=== PATIENT | female | born 1945 | race Hispanic/Latino ===

== ENCOUNTER 2017-10-06 13:07 | Emergency (ER) | payer MEDICARE ==
[2017-10-06 13:43] VITALS: BP 144/77; PULSE 74; RESP 16; TEMP 97.6; O2SAT 96
--- NOTE | 2017-10-06 14:32 | C.PDOC ---
History Of Present Illness 71 year old female presents to the ED with her AA sponsor for evaluation of substance abuse. Patient states she normally takes oxycontin for her sciatica- related back pain but found that her prescription medication was missing today. Patient states she was afraid of going into withdrawal, so she states she took two pills of Soma, Xanax and Zanaflex, respectively. Patient notes she did not take the pills as a suicide attempt, but because she was afraid of going into withdrawal and wanted to get high. Patient states she is currently jittery and has no other complaints at this time. Time Seen by Provider: 10/06/17 14:17 Chief Complaint (Nursing): Substance Abuse History Per: Patient History/Exam Limitations: no limitations Onset/Duration Of Symptoms: Hrs Current Symptoms Are (Timing): Still Present Suicide/Self Injury Attempted (Context): None Modifying Factor(s): Narcotics Associated Symptoms: denies: Suicidal Thoughts, Suicidal Plan Involuntary Hold By: None Recent travel outside of the [place]: No Additional History Per: Patient Past Medical History Reviewed: Historical Data, Nursing Documentation, Vital Signs Vital Signs: Last Vital Signs Temp 97.6 F 10/06/17 13:40 Pulse 74 10/06/17 13:40 Resp 16 10/06/17 13:40 BP 144/77 10/06/17 13:40 Pulse Ox 96 10/06/17 15:34 - Medical History PMH: Hyperlipidemia, Hypothyroidism Denies: Diabetes, Hepatitis, HIV, HTN, Seizures, Sexually Transmitted Disease Surgical History: No Surg Hx - [facility] Procedures DETOXIFICATION SERVICES FOR SUBSTANCE ABUSE TREATMENT (06/22/15) INDIV PSYCHOTHERAPY FOR SUBSTANCE ABUSE TREATMENT, SUPPORT (06/22/15) INDIV PSYCHOTHERAPY FOR SUBSTANCE ABUSE, PSYCHOEDUCATION (06/22/15) Family History: States: Unknown Family Hx - Social History Hx Alcohol Use: Yes Hx Substance Use: Yes - Immunization History Hx Tetanus Toxoid Vaccination: No Hx Influenza Vaccination: Yes Hx Pneumococcal Vaccination: No Review Of Systems Psych: Negative for: Suicidal ideation Physical Exam - Physical Exam Appears: Non-toxic, No Acute Distress Skin: Normal Color, Warm, Dry Head: Atraumatic, Normacephalic Eye(s): bilateral: Normal Inspection Oral Mucosa: Moist Neck: Supple Chest: Symmetrical, No Deformity, No Tenderness Cardiovascular: Rhythm Regular, No Murmur Respiratory: Normal Breath Sounds, No Rales, No Rhonchi, No Wheezing Extremity: Normal ROM, Capillary Refill (less than 2 seconds ) Neurological/Psych: Oriented x3, Normal Speech, Normal Cognition ED Course And Treatment O2 Sat by Pulse Oximetry: 96 (on RA) Pulse Ox Interpretation: Normal Progress Note: Catapres PO administered. Reevaluation Time: 15:51 Reassessment Condition: Improved (PT REFUSING DETOX. S/P EVAL CRISIS, REFERRAL INFO GIVEN.) Disposition Counseled Patient/Family Regarding: Diagnosis, Need For Followup - Disposition Referrals: DETOX,DETOX [Other] Disposition: HOME/ ROUTINE Disposition Time: 15:52 Condition: IMPROVED Instructions: Drug Withdrawal (DC) Forms: [place] (Portuguese) - Clinical Impression Clinical Impression: Polysubstance (including opioids) dependence, daily use - Scribe Statement The provider has reviewed the documentation as recorded by the Scribe (Jodie Mojica) Provider Attestation: All medical record entries made by the Scribe were at my direction and personally dictated by me. I have reviewed the chart and agree that the record accurately reflects my personal performance of the history, physical exam, medical decision making, and the department course for this patient. I have also personally directed, reviewed, and agree with the discharge instructions and disposition.
== END 2017-10-06 16:01 | disposition home or self-care (01) ==
LOC: C.ER 13:07
DX: F11.20 Opioid dependence, uncomplicated (principal)

== ENCOUNTER 2017-10-09 11:51 | Inpatient (IN) | payer MEDICARE ==
[2017-10-09 12:03] VITALS: BMI 20.5
[2017-10-09] MEDS ORDERED: Sodium Chloride 0.9% 1,000 ML IV ONE (12:27)
[2017-10-09] MEDS ORDERED: Sodium Chloride 0.9% 1,000 ML ONE (12:42)
[2017-10-09 13:10] LABS: BASO % 0.6 % (0.0-2.0); EOS % 0.6 % (0.0-4.0); HEMOGLOBIN 10.9 g/dL (11.0-16.0); LYMPH # 1.2 K/uL (1.0-4.3); MEAN CELL VOLUME 76.5 fL (81.0-99.0); MEAN CORPUSCULAR HEMOGLOBIN 24.5 pg (27.0-31.0); MEAN PLATELET VOLUME 8.2 fL (7.2-11.7); MONO # 0.7 K/uL (0.0-0.8); NEUT # 5.5 K/uL (1.8-7.0); NEUT % 73.8 % (50.0-75.0); NRBC % 0.1 % (0.0-2.0); RBC 4.46 Mil/uL (3.80-5.20); RED CELL DISTRIBUTION WIDTH 19.1 % (11.5-14.5); WHITE BLOOD COUNT 7.5 K/uL (4.8-10.8)
[2017-10-09 13:16] LABS: SQUAMOUS EPITHIAL 2 /hpf (0-5); URINE BACTERIA OCC (<OCC); URINE BILIRUBIN NEGATIVE (NEGATIVE); URINE BLOOD NEGATIVE (NEGATIVE); URINE CLARITY Clear (Clear); URINE COLOR Yellow (YELLOW); URINE GLUCOSE (UA) NORMAL (Normal); URINE LEUKOCYTE ESTERASE TRACE Leu/uL (Negative); URINE PROTEIN NEGATIVE (NEGATIVE); URINE UROBILINOGEN NORMAL mg/dL (0.2-1.0)
[2017-10-09 13:22] LABS: ALB/GLOB RATIO 1.2 (1.0-2.1); ALBUMIN 3.8 g/dL (3.5-5.0); ALT/SGPT 16 U/L (9-52); AST/SGOT 26 U/L (14-36); BLOOD UREA NITROGEN 23 mg/dL (7-17); CALCIUM 8.5 mg/dl (8.6-10.4); GFR AFRICAN-AMERICAN > 60; GFR NON-AFRICAN AMERICAN > 60
--- NOTE | 2017-10-09 13:30 | C.PDOC ---
History Of Present Illness 71-year-old female, presents to the emergency department requesting detox from alcohol, Percocet and Xanax. Patient states her last drink was 05:00 this morning. She admits nausea. Denies any SI/HI. Time Seen by Provider: 10/09/17 12:17 Chief Complaint (Nursing): Substance Abuse History Per: Patient History/Exam Limitations: no limitations Past Medical History Reviewed: Historical Data, Nursing Documentation, Vital Signs Vital Signs: Last Vital Signs Temp 97.5 F L 10/09/17 12:03 Pulse 72 10/09/17 12:03 Resp 16 10/09/17 12:03 BP 91/58 L 10/09/17 12:03 Pulse Ox 99 10/09/17 12:03 - Medical History PMH: Hyperlipidemia, Hypothyroidism - [facility] Procedures DETOXIFICATION SERVICES FOR SUBSTANCE ABUSE TREATMENT (06/22/15) INDIV PSYCHOTHERAPY FOR SUBSTANCE ABUSE TREATMENT, SUPPORT (06/22/15) INDIV PSYCHOTHERAPY FOR SUBSTANCE ABUSE, PSYCHOEDUCATION (06/22/15) Family History: States: No Known Family Hx - Social History Hx Alcohol Use: Yes Hx Substance Use: Yes - Immunization History Hx Tetanus Toxoid Vaccination: No Hx Influenza Vaccination: Yes Hx Pneumococcal Vaccination: No Review Of Systems Constitutional: Negative for: Fever Cardiovascular: Negative for: Chest Pain Respiratory: Negative for: Shortness of Breath Gastrointestinal: Negative for: Vomiting Neurological: Negative for: Weakness, Numbness Psych: Negative for: Suicidal ideation, Withdrawal Physical Exam - Physical Exam Appears: Non-toxic, No Acute Distress, Chronically Ill, Other (thin) Skin: Warm, Dry, No Rash Head: Normacephalic Eye(s): bilateral: PERRL Nose: Normal Oral Mucosa: Moist Lips: Normal Appearing Neck: Normal ROM Cardiovascular: Rhythm Regular, No Murmur Respiratory: Normal Breath Sounds, No Accessory Muscle Use Gastrointestinal/Abdominal: Soft, No Tenderness Extremity: Normal ROM, No Deformity, No Swelling Neurological/Psych: Oriented x3, Normal Speech, Other (no tremor) ED Course And Treatment - Laboratory Results Result Diagrams: 10/09/17 13:04 10/09/17 13:04 O2 Sat by Pulse Oximetry: 99 (RA) Pulse Ox Interpretation: Normal Progress Note: Bloodwork and UA ordered and reviewed, pt treated with Zofran and IVFs. Disposition - Disposition - Scribe Statement The provider has reviewed the documentation as recorded by the Scribe (helena Rivera) All medical record entries made by the Scribe were at my direction and personally dictated by me. I have reviewed the chart and agree that the record accurately reflects my personal performance of the history, physical exam, medical decision making, and the department course for this patient. I have also personally directed, reviewed, and agree with the discharge instructions and disposition.
[2017-10-09 13:31] LABS: BARBITURATES, UR NEGATIVE (NEGATIVE); OPIATES, UR NEGATIVE (NEGATIVE); PHENCYCLIDINE, UR NEGATIVE (NEGATIVE)
[2017-10-09 13:36] LABS: BENZODIAZEPINES, UR POSITIVE (NEGATIVE)
--- NOTE | 2017-10-09 13:36 | C.PDOC ---
History Of Present Illness 71-year-old female, with PMh HTN, hypothyroid, presents to the emergency department requesting detox from alcohol, Percocet and Xanax. Patient states her last drink was 05:00 this morning. She admits nausea. Denies any SI/HI. Pt denies withdrawal seizures. STates she is complaint with her chronic medication. Time Seen by Provider: 10/09/17 12:05 Chief Complaint (Nursing): Substance Abuse History Per: Patient History/Exam Limitations: no limitations Past Medical History Reviewed: Historical Data, Nursing Documentation, Vital Signs Vital Signs: Last Vital Signs Temp 98.4 F 10/09/17 17:21 Pulse 47 L 10/09/17 17:21 Resp 20 10/09/17 17:21 BP 144/63 10/09/17 17:21 Pulse Ox 99 10/09/17 17:52 - Medical History PMH: Hyperlipidemia, Hypothyroidism - [facility] Procedures DETOXIFICATION SERVICES FOR SUBSTANCE ABUSE TREATMENT (06/22/15) INDIV PSYCHOTHERAPY FOR SUBSTANCE ABUSE TREATMENT, SUPPORT (06/22/15) INDIV PSYCHOTHERAPY FOR SUBSTANCE ABUSE, PSYCHOEDUCATION (06/22/15) Family History: States: No Known Family Hx - Social History Hx Alcohol Use: Yes Hx Substance Use: Yes - Immunization History Hx Tetanus Toxoid Vaccination: No Hx Influenza Vaccination: Yes Hx Pneumococcal Vaccination: No Review Of Systems Constitutional: Negative for: Fever Cardiovascular: Negative for: Chest Pain Respiratory: Negative for: Shortness of Breath Gastrointestinal: Negative for: Vomiting Psych: Negative for: Suicidal ideation, Withdrawal Physical Exam - Physical Exam Appears: Non-toxic, No Acute Distress, Other (thin, no tremor) Skin: Normal Color, Warm, Dry, No Rash Head: Normacephalic Eye(s): bilateral: Normal Inspection, EOMI Nose: Normal Oral Mucosa: Moist Lips: Normal Appearing Neck: Normal ROM, Supple Chest: Symmetrical Cardiovascular: Rhythm Regular, Other (bradycardia) Respiratory: Normal Breath Sounds, No Accessory Muscle Use Extremity: Normal ROM, No Deformity, No Swelling Neurological/Psych: Oriented x3, Normal Speech ED Course And Treatment - Laboratory Results Result Diagrams: 10/09/17 13:04 10/09/17 13:04 ECG: Interpreted By Me, Viewed By Me ECG Rhythm: Sinus Bradycardia Rate From EC O2 Sat by Pulse Oximetry: 99 (RA) Pulse Ox Interpretation: Normal Progress Note: Bloodwork and UA ordered and reviewed, pt treated with Zofran and IVFs. Pt was noted to have bradycardia. Pt notes that her HR is always in the 40s, that is normal for her. STates her outsole molder is aware. States "I work out a lot." Deneis sob, chest pain, dizziness, headache or associated symtpoms. Case discussed with Dr Mallory who evlauated pt at bedside and agreed upon plan and admission. slag worker evalauted pt at bedside and discussed case with Dr Heredia who agreed upon admission. Disposition - Disposition Disposition: HOSPITALIZED Disposition Time: 17:00 Condition: STABLE - Clinical Impression Clinical Impression: Drug dependence, Polysubstance (including opioids) dependence, daily use - Scribe Statement The provider has reviewed the documentation as recorded by the Scribe (Aaron Rivera) All medical record entries made by the Scribe were at my direction and personally dictated by me. I have reviewed the chart and agree that the record accurately reflects my personal performance of the history, physical exam, medical decision making, and the department course for this patient. I have also personally directed, reviewed, and agree with the discharge instructions and disposition.
[2017-10-09] MEDS: Multiple Vitamins Tab PO SCH (18:13)
--- NOTE | 2017-10-09 19:25 | PCM.BM ---
<Elisabeth Solorzano - Last Filed: 10/09/17 19:22> Treatment Plan Problems - Problems identified on initial assessmt potential for alcohol withdrawal Date Initiated: 10/09/17 Time Initiated: 19:23 Assessment reference: NA Status: Active potential for opiate withdrawal Date Initiated: 10/09/17 Time Initiated: 19:23 Assessment reference: NA Status: Active potential for benzo withdrawal Date Initiated: 10/09/17 Time Initiated: 19:24 Assessment reference: NA Status: Active Treatment assets and liabiliti Patient Assests: adapts well, cooperative, insightful, ADL independent, good support system, negotiates basic needs, cognitively intact Patient Liabilities: dietary restrictions, substance abuse, medical problems - Milieu Protocol Maintain good personal hygiene: daily Encourage regular showers, daily Remind patient to perform daily oral care, daily Assist patient to perform ADL's Maintain personal safety: every shift Educate patient to report safety concerns to staff, every shift Monitor environment for contraband/sharps Medication safety: Monitor for expected outcome, potential side effects: every shift, Assess barriers to learning: every shift, Assess readiness for medication education: every shift <Josselyn Wills - Last Filed: 10/10/17 12:13> Family Contact Family involvement: Family/SO is involved Family contact: Patient agrees to contact, Telephone contact initiated by staff - Goals for Treatment Patient goals for treatment: Complete detox and resume AA meetings with her sponsor. Discharge/Continuing Care - Education Needs Education Needs: Patient Medication, Patient Diagnosis/Disease Process, Patient Coping Skills, Patient Anger Management skills, Patient Placement options, Patient Community resources, Significant Other Medication, Significant Other Diagnosis/Disease Process, Significant Other Coping Skills, Significant Other Anger Management skills, Significant Other Placement options, Significant Other Community resources - Discharge Discharge Criteria: Ability to care for self, No longer exhibiting s/s of withdrawal, Reduction of target symptoms Discharge to:: Home, With Family - Treatment Team Participation Patient/Family/SO Statement: 10/10/17 12:14 "I know what works for me. I have to get back to basics." Discussed with Family/SO: No Was Patient/Family/SO present at Treatment Team Meeting: Yes <Elkin Heredia - Last Filed: 10/10/17 22:58> - Diagnosis (1) Opioid use disorder, severe, dependence Status: Acute Interventions: 10/10/17 22:58 * Assess 7x/week regarding severity of withdrawal * Educate regarding risks, benefits, side effects and alternatives of medications * Use Motivational Interviewing for abstinence * Use CBT for relapse prevention * Medication management for withdrawal symptoms * Encourage medication assisted treatment *
[2017-10-10] MEDS: Multiple Vitamins Tab PO SCH (09:42)
[2017-10-10] MEDS ORDERED: Buprenorphine Hydrochloride 2 mg SL ONE ×2 (09:59→11:15)
[2017-10-10] MEDS: Levothyroxine 25 MCG TAB PO SCH (10:26)
--- NOTE | 2017-10-10 15:10 | CARD ---
APPROVED REPORT EKG Measurement Heart [id number] <Conclusion> Marked sinus bradycardia Possible Left atrial enlargement Left ventricular hypertrophy Nonspecific ST and T wave abnormality Abnormal ECG
--- NOTE | 2017-10-10 15:55 | PCM.PSYCH ---
Initial Psychiatric Evaluation - Initial Psychiatric Evaluation Type of Admission: Voluntary Legal Status: Capacity Chief Complaint (in patient's own words): "I need to stop the Xanax' History of Present Illness and Precipitating Events: HPI: 71 year old female with PMHx of alcohol and polysubstance abuse presents for benzodiazepine and opiate detox. Patient lives in [place] with her who has slight dementia, she is a retired teacher. She has been through detox 5-6 times in the past and once through rehab. Her longest period of sobriety was from 2007 to 2015. She relapsed about 1 year ago when she took Percocet for sciatica. She states she has been overusing her prescribed Xanax whenever her Percocet ran out and has been adding alcohol as well. She takes 6x 350 mg Percocet daily, last used 5 days ago when they ran out. She uses 0.5 mg Xanax 2-4x daily (but she is unsure of actual dosing), last used 5:30pm yesterday. She uses a half liter of liquor daily, last used 5:30pm yesterday. She currently complains of anxiety, tremors, and discomfort from withdrawal symptoms, n/v/d last night. Denies depression, hallucinations, suicidal or homicidal ideation. PMHx: sciatica (left side), osteoporosis, polysubstance abuse opiates, Xanax, alcohol Psych hx: multiple detox admisssions for polysubstance abuse Fam hx: denies family history of psychiatric issues or substance abuse Social hx: lives with who has slight dementia in [facility]; retired, former nursery teacher; exercises twice a day on ellipitical and bike, lifts weights; denies tobacco, marijuana, heroin, cocaine use; uses 0.5 mg Xanax 2-4x daily (but she is unsure of actual dosing); drinks 0.5 liters liquor daily Current Medications: Active Medications Generic Name Dose Route Start Last Admin Trade Name Freq PRN Reason Stop Dose Admin Chlordiazepoxide 25 mg 10/09/17 18:00 10/10/17 13:01 Librium PO 10/13/17 17:59 Not Given Q6 [facility] Taper Clonidine HCl 0.1 mg 10/09/17 16:24 Catapres PO Q4H PRN Symptoms of alcohol withdrawl Folic Acid 1 mg 10/09/17 16:30 10/10/17 09:42 Folic Acid PO 1 mg DAILY [facility] Administration Levothyroxine Sodium 25 mcg 10/10/17 10:00 10/10/17 10:26 Synthroid PO 25 mcg DAILY@0630 [facility] Administration Multivitamins 1 tab 10/09/17 16:30 10/10/17 09:42 Hexavitamin PO 1 tab DAILY [facility] Administration Ondansetron HCl 4 mg 10/09/17 18:38 10/10/17 14:12 Zofran Tab PO 4 mg Q8 PRN Administration Nausea/Vomiting Rosuvastatin Calcium 10 mg 10/10/17 22:00 Crestor PO HS [facility] Thiamine HCl 100 mg 10/09/17 16:30 10/10/17 09:42 Vitamin B1 Tab PO 100 mg DAILY [facility] Administration Trazodone HCl 50 mg 10/09/17 16:24 10/09/17 21:11 Desyrel PO 50 mg HS PRN Administration Insomnia Past Psychiatric History - Past Psychiatric History Previous Treatment History: None Pertinent Medical Hx (Current Medical&Sleep Prob, Allergies): Allergies Allergy/AdvReac Type Severity Reaction Status Date / Time No Known Allergies Allergy Verified 10/09/17 12:02 Gabapentin [Neurontin] 300 mg PO DAILY 06/22/15 Levothyroxine [Synthroid] 0.025 mg PO DAILY 06/22/15 Omeprazole [PrilOSEC] 40 mg PO DAILY 06/22/15 Simvastatin [Zocor] 40 mg PO HS 06/22/15 Losartan 1 tab PO DAILY 10/09/17 Review of Systems - Psychiatric Psychiatric: Abnormal Sleep Pattern, Anxiety. absent: Depression, Hallucinations, Irritability, Suicidal Ideation Mental Status Examination - Personal Presentation Personal Presentation: Looks younger than stated age - Affect Affect: Broad - Motor Activity Motor Activity: Calm - Reliability in Providing Information Reliability in Providing Information: Good - Speech Speech: Organized - Mood Mood: Anxious - Formal Thought Process Formal Thought Process: No Impairment - Cognitive Functions Orientation: Person, Place, Situation, Time Sensorium: Alert Attention/Concentration: Attentive Estimate of Intelligence: Average Judgement: Intact, as evidence by: Insight regarding need for hospitalization Memory: Recent intact, as evidence by: Ability to recall events of the day, Remote impaired as evidenced by: Inability to recall historical events - Risk Risk: Seizure, Withdrawal, Diminished functioning - Strength & Assets Inventory Strength & Assets Inventory: Cooperative - Limitations Limitations: Other DSM 5 DX - DSM 5 DSM 5 Diagnosis: Alcohol use d/o - severe Opioid use d/o - severe Sedative, 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 Attend groups and activities Supportive therapy and psychoeducation [place] for abstinence CBT for relapse prevention Encourage MAT Refer to IOP, and self-help groups 36 min Projected ELOS: 4-5 days Prognosis: good w treatment
[2017-10-11] MEDS: Levothyroxine 25 MCG TAB PO SCH (06:54)
[2017-10-11] MEDS: Multiple Vitamins Tab PO SCH (09:24)
[2017-10-11] MEDS ORDERED: Buprenorphine Hydrochloride 2 mg SL ONE (10:00)
[2017-10-12] MEDS: Levothyroxine 25 MCG TAB PO SCH (06:50)
[2017-10-12] MEDS: Multiple Vitamins Tab PO SCH (09:18)
[2017-10-12] MEDS ORDERED: Buprenorphine Hydrochloride 2 mg SL ONE (10:23)
--- NOTE | 2017-10-12 13:07 | PCM.PYCHPN ---
Psychiatric Progress Note - Psychiatric Progress Note Patient seen today, length of contact: 16 min Patient Chief Complaint: "I need to stop the Xanax' Problems Identified/Issues Discussed: The pt is seen, chart reviewed, case discussed with staff. The pt is compliant with medications and reports no side-effects. Symptoms are improving but needs more time to stabilize. After care discussed, support and psychoeducation given. She is tearful and depressed, worried about her , doesn't sleep well. Medication Change: Yes Medical Record Reviewed: Yes Mental Status Examination - Cognitive Function Orientation: Person, Place, Situation, Time Memory: Impaired Attention: Poor Concentration: Poor Association: WNL Fund of Knowledge: WNL - Mood Mood: Anxious - Affect Affect: Broad - Speech Speech: Appropriate - Formal Thought Process Formal Thought Process: No Impairment - Suicidal Ideation Suicidal Ideation: No - Homicidal Ideation Homicidal Ideation: No Goal/Treatment Plan - Goal/Treatment Plan Need for Continued Stay: Discharge may exacerbated symptoms, Severe functional impairment Progress Toward Problem(s) and Goals/Treatment Plan: Taper with Librium and subutex Add lexapro for depression, increase trz for insomnia - risks discussed Pt has bradycardia - we will be careful Gabapentin for augmentation if needed As needed medications All risks, benefits and alternatives of the meds discussed, and the pt agreed and understood. Attend groups and activities Supportive therapy and psychoeducation [place] for abstinence CBT for relapse prevention Encourage MAT Refer to IOP, and self-help groups
--- NOTE | 2017-10-12 13:09 | PCM.PYCHPN ---
Psychiatric Progress Note - Psychiatric Progress Note Patient seen today, length of contact: 16 min Patient Chief Complaint: "I am not well" Problems Identified/Issues Discussed: The pt is seen, chart reviewed, case discussed with staff. She is compliant with meds but asked to stop her lexapro out of fear of weight gain She agreed with Prozac and it is started today. She is clinically depressed, which may lead her into relapse. Her BP and pulse are running low, so it is hard to medicate but she still got 50 mg librium yesterday and 25 mg today, so far Because of the medications CIWA remains low However, she still feels "not ready" and "not well" She c/o nausea (got Zofran today), anxious, not sleeping well, has aches and irritability COWS is around 7 and we will give another 2 mg tomorrow before discharge After care is discussed, plans arranged by counselors Relapse prevention is discussed Support and [place] used Medication Change: Yes (add Prozac) Medical Record Reviewed: Yes Mental Status Examination - Cognitive Function Orientation: Person, Place, Situation, Time Memory: Impaired Attention: Poor Concentration: Poor Association: WNL Fund of Knowledge: WNL - Mood Mood: Anxious - Affect Affect: Broad - Speech Speech: Appropriate - Formal Thought Process Formal Thought Process: No Impairment - Suicidal Ideation Suicidal Ideation: No - Homicidal Ideation Homicidal Ideation: No Goal/Treatment Plan - Goal/Treatment Plan Need for Continued Stay: Discharge may exacerbated symptoms, Severe functional impairment Progress Toward Problem(s) and Goals/Treatment Plan: Taper with Librium and subutex ending soon Add prozac for depression, increase trz for insomnia - risks discussed Pt has bradycardia - we will be careful Gabapentin for augmentation if needed As needed medications All risks, benefits and alternatives of the meds discussed, and the pt agreed and understood. Attend groups and activities Supportive therapy and psychoeducation [place] for abstinence CBT for relapse prevention Encourage MAT Refer to IOP, and self-help groups Estimated Date of D/C: 10/13/17
[2017-10-12 15:57] VITALS: RESP 18
[2017-10-13] MEDS: Levothyroxine 25 MCG TAB PO SCH (07:00)
--- NOTE | 2017-10-13 08:41 | PCM.PYCHDC ---
Mental Status Examination - Mental Status Examination Orientation: Person, Place, Situation, Time Memory: Impaired Mood: Anxious Affect: Constricted Speech: Appropriate Attention: WNL Concentration: Poor Association: WNL Fund of Knowledge: WNL Formal Thought Process: No Impairment Suicidal Ideation: No Current Homicidal Ideation?: No Discharge Summary - Discharge Note Reason for Hospitalization: Alcohol and opiate detox Consultations:: List each consultation separately and include: 1. Reason for request. 2. Findings. 3. Follow-up Summary of Hospital Course include:: 1. Description of specific treatment plan utilized for patients during their course of treatmen. 2. Summarize the time- course for resolution of acute symptoms and/or regressed behaviors. 3. Describe issues identified and worked on during hospitalization. 4. Describe medication utilized. 5. Describe medical problems identified and treated. 6. Reassessment of suicide risk Summary of Hospital Course: The pt is seen, chart reviewed She got another Ativan prn last night On admission: HPI: 71 year old female with PMHx of alcohol and polysubstance abuse presents for benzodiazepine and opiate detox. Patient lives in [place] with her who has slight dementia, she is a retired teacher. She has been through detox 5-6 times in the past and once through rehab. Her longest period of sobriety was from 2007 to 2016. She relapsed about 1 year ago when she took Percocet for sciatica. She states she has been overusing her prescribed Xanax whenever her Percocet ran out and has been adding alcohol as well. She takes 6x 350 mg Percocet daily, last used 5 days ago when they ran out. She uses 0.5 mg Xanax 2-4x daily (but she is unsure of actual dosing), last used 5:30pm yesterday. She uses a half liter of liquor daily, last used 5:30pm yesterday. She currently complains of anxiety, tremors, and discomfort from withdrawal symptoms, n/v/d last night. Denies depression, hallucinations, suicidal or homicidal ideation. PMHx: sciatica (left side), osteoporosis, polysubstance abuse opiates, Xanax, alcohol Psych hx: multiple detox admisssions for polysubstance abuse Fam hx: denies family history of psychiatric issues or substance abuse Social hx: lives with who has slight dementia in [facility]; retired, former nursery teacher; exercises twice a day on ellipitical and bike, lifts weights; denies tobacco, marijuana, heroin, cocaine use; uses 0.5 mg Xanax 2-4x daily (but she is unsure of actual dosing); drinks 0.5 liters liquor daily Hospital course: The pt was admitted and started on treatment with psychotherapy, support, psychoeducation and medications. OK and CBT used. The pt attended groups and activities, as well as milieu therapy. All the risks and benefits of medications are discussed and the patient understood and agreed. The pt improved with the treatments provided. She had breakthrough sxs in between and her low pulse complicated her treatment After care discussed with the patient. She will attend AA and see a suboxone doctor, continue Prozac and start therapy. 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 Follow after care plan as discussed. Use relapse prevention skills Return to ER or call 911 if suicidal, homicidal or symptoms relapse. Stay away from stress, alcohol and drugs. See primary doctor regularly and get labs. Prescriptions/Medication Reconciliation: FLUoxetine [Prozac] 10 mg PO DAILY #30 cap hydrOXYzine HCl [Atarax] 25 mg PO BID PRN #60 tab PRN Reason: Anxiety Levothyroxine [Synthroid] 25 mcg PO DAILY@0630 #30 tab Multivitamins [Hexavitamin] 1 tab PO DAILY #30 tab traZODone [Desyrel] 100 mg PO HS PRN #30 tab PRN Reason: Insomnia
[2017-10-13] MEDS: Multiple Vitamins Tab PO SCH (09:44)
[2017-10-13] MEDS ORDERED: Buprenorphine Hydrochloride 2 mg SL ONE (10:00)
[2017-10-13 10:22] VITALS: BP 105/46; PULSE 56; TEMP 98.7; O2SAT 98
== END 2017-10-13 10:55 | disposition home or self-care (01) | DRG 895 ==
LOC: C.ER 11:51 → C.9E 14:41 → C.7D 15:16
PROVIDERS: ADMIT Psychiatry & Neurology Psychiatry; ATTEND Psychiatry & Neurology Psychiatry
PROC: HZ2ZZZZ Detoxification Services for Substance Abuse Treatment (ICD-10-PCS; principal; 2017-10-09)
PROC: HZ52ZZZ Individual Psychotherapy for Substance Abuse Treatment, Cognitive-Behavioral (ICD-10-PCS; 2017-10-09)
PROC: HZ59ZZZ Individual Psychotherapy for Substance Abuse Treatment, Supportive (ICD-10-PCS; 2017-10-09)
PROC: HZ56ZZZ Individual Psychotherapy for Substance Abuse Treatment, Psychoeducation (ICD-10-PCS; 2017-10-09)
PROC: HZ42ZZZ Group Counseling for Substance Abuse Treatment, Cognitive-Behavioral (ICD-10-PCS; 2017-10-09)
PROC: HZ46ZZZ Group Counseling for Substance Abuse Treatment, Psychoeducation (ICD-10-PCS; 2017-10-09)
DX: F10.230 Alcohol dependence with withdrawal, uncomplicated (principal); Y90.0 Blood alcohol level of less than 20 mg/100 ml; F11.23 Opioid dependence with withdrawal; F13.230 Sedative, hypnotic or anxiolytic dependence with withdrawal, uncomplicated; E03.9 Hypothyroidism, unspecified; E78.5 Hyperlipidemia, unspecified; F32.9 Major depressive disorder, single episode, unspecified; R00.1 Bradycardia, unspecified; G47.00 Insomnia, unspecified; I10 Essential (primary) hypertension; M54.30 Sciatica, unspecified side; M81.0 Age-related osteoporosis without current pathological fracture